=== PATIENT | female | born 1945 | race Caucasian/White ===

== ENCOUNTER 2018-03-29 08:54 | Day surgery (SDC) | payer OTHER ==
[~2018-03-29 08:54] MED LIST: GLIMEPIRIDE2 MG PO; IMODIUM A-D2 MG PO; LEVAQUIN500 MG PO; MICARDIS40 MG PO; PREVACID30 MG PO; RANITIDINE HCL150 M1 PO; ZOFRAN4 MG PO
== END 2018-03-29 17:25 | disposition home or self-care (01) ==
LOC: CIR.AMB 08:54
DX: N84.0 Polyp of corpus uteri (principal)